=== PATIENT | female | born 1960 | race African-American/Black ===

== ENCOUNTER 2024-01-29 17:27 | Emergency (ER) | payer OTHER ==
[2024-01-29 17:34] VITALS: BP 145/81; PULSE 79; RESP 16; TEMP 97.8; BMI 18.8
[2024-01-29] MEDS: FLUORESCEIN NA 1 EA STRIP OU ONE (19:07)
[2024-01-29] MEDS ORDERED: KETOROLAC TROMETHAMINE 30 MG/1 ML VIAL ONE (19:08)
[2024-01-29] MEDS: TETRACAINE 0.5% OPHTH SOLN 2 ML BOTTLE OU ONE (19:08)
[2024-01-29] MEDS ORDERED: ACETAMINOPHEN 500 MG TABLET (FP) ONE (19:08)
[2024-01-29] MEDS ORDERED: prednisoLONE ACETATE 0.12% OPTH SUSP- 5 ML BOTTLE OU SCH ×2 (19:09→22:00)
[2024-01-29] MEDS: ACETAMINOPHEN 500 MG TABLET (FP) PO ONE (19:13)
[2024-01-29] MEDS: KETOROLAC TROMETHAMINE 30 MG/1 ML VIAL IM ONE (19:13)
== END 2024-01-29 20:10 | disposition home or self-care (01) ==
LOC: JER 17:27
PROC: 3E0133Z Introduction of Anti-inflammatory into Subcutaneous Tissue, Percutaneous Approach (ICD-10-PCS; principal; 2024-01-29)
DX: S05.91XA Unspecified injury of right eye and orbit, initial encounter (principal); W22.8XXA Striking against or struck by other objects, initial encounter
CPT/HCPCS: 99284-25